=== PATIENT | female | born 1995 | race African-American/Black ===

== ENCOUNTER 2016-04-20 18:58 | Inpatient (IN) ==
[~2016-04-20 18:58] MED LIST: Famotidine 20 MG/2 ML VIAL IVP PRN; Metoclopramide 10 MG/2 ML VIAL IVP PRN; Naloxone 0.4 MG/ML INJ IVP PRN; Ondansetron 4 MG/2 ML VIAL IVP PRN; Oxytocin 20 units/ LR 1000 mL 20 UNIT/1,000 ML BAG IVC ONE; Ringers Solution, Lactated 1,000 ML IVC SCH
[2016-04-20 19:03] LABS: Basophils # 0.1 K/mcL (0.0-0.2); Basophils % 0.3 %; Eosinophils % 0.1 %; Hematocrit 37.1 % (35.3-44.9); Hemoglobin 12.9 g/dL (11.5-15.4); Immature Granulocytes % 0.4 % (0-4); Lymphocytes # 1.1 K/mcL (0.6-4.6); Lymphocytes % 5.9 %; Mean Corpuscular HGB Conc 34.8 g/dL (31.6-35.5); Mean Corpuscular Hemoglobin 30.7 pg (28.0-33.3); Mean Corpuscular Volume 88.3 fL (83.0-100.0); Monocytes # 0.7 K/mcL (0.0-1.3); Monocytes % 3.7 %; Neutrophils # 16.3 K/mcL (1.6-8.9); Platelet Count 284 K/mcL (140-400); Red Cell Distribution Width 13.5 % (11.5-14.5); Segmented Neutrophils % 89.6 %
[2016-04-20] MEDS ORDERED: *HR* FentaNYL (PF) 100 MCG/2 ML VIAL ONE (19:09)
--- NOTE | 2016-04-20 19:09 | OB/GYN History & Physical ---
Date of Encounter: 04/20/16 Time of Encounter: 19:13 Assessment and Plan (1) 40 weeks gestation of Current visit: Yes Status: Acute Admit for delivery (2) Hepatitis C Current visit: No Status: Chronic monitored by PCP Qualifiers: Viral hepatitis chronicity: chronic Hepatic coma status: without hepatic coma Qualified Code(s): B18.2 - Chronic viral hepatitis C History of Present Illness Chief complaint: Labor HPI: Ms. Mccabe is a 20 year old female @ 40w2d presents to labor and delivery with c/o contractions that started on . Patient denies any LOF or VB. Patient reports +FM. Blood type is B+, Rubella:Immune, Hep B: Negative, Hep C: Positive, GBS: Negative. Patient was completely dilated upon admission for labor evaluation. Patient admitted for delivery. Past Med Surg Social Fam HX - Past Medical History Source: patient Medical history: hepatitis Psychiatric history: anxiety, depression - Past Surgical History Surgical History: other (for scoliosis) - Social History Smoking Status: Never smoker Smokeless Tobacco Status: No Alcohol use: none Drug use: marijuana Current living situation: Home - Independent Activity Level: Independent ambulation Recent Out of Country Travel Within the Last 8 Weeks: No Exposure or Possible Exposure to Illness During Travel: No - Family History Mother Living Status: Hx Family Cardiac Disorders: No Hx Family Respiratory Disorders: No Hx Family Cancer: No Hx Family GI Disorders: No Hx Family Genitourinary Disorders: No Hx Family Endocrine Disorder: No Hx Family Musculoskeletal Disorders: No Hx Family Neuromuscular Disorders: No Hx Family Neurologic Disorders: No Hx Family HEENT Disorders: No Hx Family Autoimmune Disorders: No Hx Family Reproductive Disorders: No Hx Family Psychosocial Disorders: No Hx Family Medical Disorders: No Obstetrical History - Pregnancies : 3 Para: 0 Term: 0 : 0 Ab's: 2 Livin Medications and Allergies Pnv95/Ferrous Fumarate/FA [ Caplet] 1 each PO DAILY 04/20/16 [History] Allergies No Known Allergies Allergy (Verified 04/20/16 19:02) Review of System OB - Constitutional Constitutional ROS IM: no chills, no fever(s), no headache(s) - Cardiovascular Cardiovascular: no chest pain, no dyspnea, no edema, no palpitations, no syncope - Respiratory Respiratory: no cough, no dyspnea - Gastrointestinal Gastrointestinal: no diarrhea, no heartburn, no nausea, no vomiting - Genitourinary Genitourinary: no abnormal vaginal bleeding, no dysuria, no flank pain, no urinary frequency, no urinary urgency, no vaginal odor, no vaginal pruritis Exam - Constitutional Constitutional: well developed, well nourished, no acute distress, average body habitus - HEENT HEENT: Normocephaly, Mucus Membranes Moist - Neck Neck exam: full ROM, supple - Lungs Respiratory exam: CTAB - Cardiovascular Cardiovascular exam: RRR, +S1, +S2 - Breasts Breast: bilateral: normal - Abdomen Abdomen: Present: bowel sounds normal, gravid, non tender - Extremities Extremities exam: full ROM, normal capillary refill, normal inspection Deep Tendon Reflex Grade: 2+ Normal - Cervix Dilation: 10 Effacement: 100 Station: -1 - Uterus Uterus exam: Present: normal size, normal contour - Anus/Rectum Anus/Rectum: Present: normal perianal skin (FHR 115 bpm moderate variability + 15x15 accels early decels noted. Contractions noted but irregular.) Results Result Diagrams: 04/20/16 18:50 Abnormal lab results WBC 18.2 K/mcL (4.3-11.1) H 04/20/16 18:50 Neutrophils # 16.3 K/mcL (1.6-8.9) H 04/20/16 18:50 All other labs normal. - VTE Reasons for not Prescribing Prophylaxis: Treatment not Indicated - Low risk for VTE
[2016-04-20 19:22] LABS: Alanine Aminotransferase 14 Units/L (0-55); Aspartate Amino Transferase 20 Units/L (5-34); BUN/Creatinine Ratio 10 (6-26); Blood Urea Nitrogen 6 mg/dL (7-20); Lactate Dehydrogenase 395 Units/L (159-327); Uric Acid 4.7 mg/dL (2.6-6.0); eGFR For African Americans > 60 (> 60); eGFR For Non-African Americans > 60 (> 60)
--- NOTE | 2016-04-20 19:50 | Anesthesia Evaluation PreOp ---
Date of Encounter: 04/20/16 Time of Encounter: 19:26 - Past History Planned Operation: , vaginal del, Cardiac History: Denies any Significant Hx Pulmonary History: Denies Any Significant HX INFORMATION COORDINATOR History: Other (severe scolosis with Bilateral Luiz placement) Other Medical History: Hepatic (HEP C.) Anesthesia History: No Prior Anesthetic Complications, Past Anesthesia Alcohol Use: none Drug use: marijuana Medications and Allergies Pnv95/Ferrous Fumarate/FA [ Caplet] 1 each PO DAILY 04/20/16 [History] Allergies No Known Allergies Allergy (Verified 04/20/16 19:02) Anesthesia Results - Labs 04/20/16 18:50 04/20/16 18:50 Anesthesia Exam - HEENT Pupil (Motor): Pupils equal Mallampati: IV Teeth: Normal Oral Opening: Greater than 3 - INFORMATION COORDINATOR LOC: Oriented INFORMATION COORDINATOR Motor: Normal RUE, Normal LUE, Normal RLE, Normal LLE, Normal Face INFORMATION COORDINATOR Sensory: Normal: RUE, LUE, RLE, LLE, Face - Cardiac Rhythm: Regular - Pulmonary Breath Sounds: bilateral Clear Respiratory Effort: Symmetrical Anesthesia Assess/Plan ASA Score: 3 Modified [place] Scale for Level of Consciousness: Cooperative, oriented, and tranquil Anesthetic Plan: General, Regional Monitoring Plan: Standard Monitors
[2016-04-20] MEDS ORDERED: Lidocaine 1% 20 ML MDV ONE (19:52)
--- NOTE | 2016-04-20 20:00 | Anesthesia Procedures ---
Date of Encounter: 04/20/16 Time of Encounter: 19:37 Procedures: Anesthesia - Epidural/Spinal Patient ID/Chart reviewed: Yes Patient examined: Yes OB Eval: Gestational age: term OB Eval: Dilated at (cm): 10 OB Eval: Contractions: Non-stressed pattern Supplemental Oxygen: None/Room Air Site Prep: Aseptic Technique, Sterile prep and drape, 0.5% Chlorhexidine/Alcohol Patient position: right lateral decubitus Local Anesthetic: Lidocaine 1% Amount of Local Anesthetic used: 4 Loss of Resistance ([place]): No Blood: No CSF: No Paresthesia: No Spinal Needle Gauge: 24 Procedure: attemped three levels, 2 passes each level, patient unable to position properly , and unable to remain still during attempts after speaking again with patient in regards to tech difficulty and successfully positioning requiring remaining still patient wishes to abort procedure and cont. without regional. vss though out, FHR stable per RN's. OB provider coming in to break membranes.
[2016-04-20] MEDS ORDERED: *HR* HYDROcodone/Acet 5/325 mg TABLET PO ONE (20:48)
--- NOTE | 2016-04-20 20:55 | OB/GYN Procedure Note ---
Delivery - Delivery Date: 04/20/16 Provider: Maribel Calderon Intrapartum events: meconium Delivery induction: none Delivery monitor: external FHT, external uterine Anesthesia: local Estimated Blood Loss: 200 - Infant (s) Infant A Delivery Date: 04/20/16 Infant Delivery Time: 20:23 Presentation: vertex Position: HUNTER Route of delivery: Gender: Male Viability: Viable Pounds: 8 Ounces: 1 at 1 minute: 8 at 5 mins: 9 Shoulder Dystocia: not encountered Placenta: spontaneous Cord: 3 umbilical vessels - Repair Episiotomy: none Laceration Description: Perineal - 2nd Degree (repaired with 3-0 vicryl.), Labial (left labial repaired with 4-0 vicryl.) - Complications Delivery complications: none Delivery comments: Called to delivery, patient feels the urge to push. A forebag was ruptured meconium stained fluid noted and respiratory was called for delivery. Patient was placed in stirrups and began pushing with contraction. Delivery of viable male . No nuchal or shoulder dystocia encountered. was placed on maternal abdomen. Infant was vigorous and crying. Cord was clamped and cut by grandfather after pulsation ceased. 1% lidocaine was used for anesthesia. 2nd degree perineal laceration was repaired with 3-0 vicryl and left labial repaired with 4-0 vicryl. Patient tolerated well. Both Mother and baby are stable in LDR. - Disposition Mom disposition: stable in LDR disposition: stable in LDR
[2016-04-20] MEDS ORDERED: Acetaminophen 325 MG TABLET PO PRN (23:55)
[2016-04-20] MEDS ORDERED: Benzocaine/Menthol 56 GM AEROSOL SPRAY TP PRN (23:55)
[2016-04-20] MEDS ORDERED: Oxytocin 20 units/ LR 1000 mL 20 UNIT/1,000 ML BAG IV SCH (23:55)
[2016-04-20] MEDS ORDERED: Lanolin 7 G OINT...G. TP PRN (23:55)
[2016-04-20] MEDS ORDERED: *HR* HYDROcodone/Acet 5/325 mg TABLET PO PRN (23:55)
[2016-04-20] MEDS ORDERED: Oxytocin 20 units/ LR 1000 mL 20 UNIT/1,000 ML BAG IVC ONE (23:55)
[2016-04-21] MEDS: Prenatal Vit/FA 1 EACH TABLET PO SCH (08:14)
[2016-04-21] MEDS: Ibuprofen 600 MG TABLET PO PRN ×2 (08:14→20:01)
--- NOTE | 2016-04-21 08:38 | OB/GYN Progress Note ---
Date of Encounter: 04/21/16 Time of Encounter: 08:36 - Assessment and Plan (1) (normal spontaneous vaginal delivery) Current Visit: Yes Status: Acute Pt meeting PPD#1 milestones. Continue to monitor. Anticipate discharge home PPD# 2. (2) Hypertension affecting in third trimester Current Visit: No Status: Acute Normotensive . (3) Stress at home Current Visit: No Status: Acute (4) Hepatitis C Current Visit: No Status: Chronic Qualifiers: Viral hepatitis chronicity: chronic Hepatic coma status: without hepatic coma Qualified Code(s): B18.2 - Chronic viral hepatitis C Subjective - Subjective Patient reports: appetite normal, voiding normally, pain well controlled, ambulating normally [place]: doing well Objective - Latest Vital Signs Latest vital signs: Vital Signs Temp Pulse Resp BP Pulse Ox 04/21/16 08:25 20 04/21/16 07:44 98.4 F 108 20 120/77 99 04/21/16 01:30 98.7 F 102 16 136/83 98 04/21/16 00:34 98.2 F 102 16 139/87 98 04/20/16 23:30 98.2 F 88 16 137/79 98 Intake and Output 04/20/16 04/21/16 04/21/16 23:59 07:59 15:59 Output Total 200 / 200 500 / 500 Balance -200 / -200 -500 / -500 Output: Urine 500 / 500 Estimated Blood Loss 200 / 200 Other: # Voids 1 Weight 115.9 kg - Exam Lungs: bilateral: normal Chest: Normal S1, Normal S2 Extremities: Present: normal Abdomen: Present: soft. Absent: tenderness Uterus: Present: firm. Absent: tenderness Uterus Position: At Umbilicus - Labs Labs: Laboratory Results - last 24 hr 04/20/16 04/20/16 18:50 18:50 WBC 18.2 H RBC 4.20 Hgb 12.9 Hct 37.1 MCV 88.3 MCH 30.7 MCHC 34.8 RDW 13.5 Plt Count 284 MPV 12.0 Immature Gran % 0.4 Seg Neutrophils % 89.6 Lymphocytes % 5.9 Monocytes % 3.7 Eosinophils % 0.1 Basophils % 0.3 Neutrophils # 16.3 H Lymphocytes # 1.1 Monocytes # 0.7 Eosinophils # 0.0 Basophils # 0.1 BUN 6 L Creatinine 0.59 Est GFR ( Amer) > 60 Est GFR (Non-Af Amer) > 60 BUN/Creatinine Ratio 10 Uric Acid 4.7 AST 20 ALT 14 Lactate Dehydrogenase 395 H
[2016-04-22 08:04] VITALS: BP 138/91
--- NOTE | 2016-04-22 08:44 | Discharge Summary ---
Date of Encounter: 04/22/16 Time of Encounter: 08:39 - Discharge Diagnosis (1) (normal spontaneous vaginal delivery) Priority: Primary Status: Acute Comments: Pt meeting milestones. (2) Hypertension affecting in third trimester Priority: Secondary Status: Acute Comments: BP normal to mild range . (3) Stress at home Priority: Secondary Status: Acute (4) Hepatitis C Priority: Secondary Status: Chronic Qualifiers: Viral hepatitis chronicity: chronic Hepatic coma status: without hepatic coma Qualified Code(s): B18.2 - Chronic viral hepatitis C - Discharge Medications Prescriptions: Ibuprofen [Motrin] 600 mg PO Q6HR PRN #60 tablet PRN Reason: Cramping Docusate [Colace] 100 mg PO BID #60 capsule Home Medications: Pnv95/Ferrous Fumarate/FA [ Caplet] 1 each PO DAILY 04/20/16 [History] Docusate [Colace] 100 mg PO BID #60 capsule 04/22/16 [Rx] Ibuprofen [Motrin] 600 mg PO Q6HR PRN #60 tablet 04/22/16 [Rx] Lanolin [Lansinoh] 1 appl TP TID PRN #0 oint...g. 04/22/16 [Rx] Allergies/Adverse Reactions: Allergies No Known Allergies Allergy (Verified 04/20/16 19:02) Data Procedures and tests throughout hospitalization: Laboratory Tests 04/20/16 04/20/16 18:50 18:50 WBC 18.2 H RBC 4.20 Hgb 12.9 Hct 37.1 MCV 88.3 MCH 30.7 MCHC 34.8 RDW 13.5 Plt Count 284 MPV 12.0 Immature Gran % 0.4 Seg Neutrophils % 89.6 Lymphocytes % 5.9 Monocytes % 3.7 Eosinophils % 0.1 Basophils % 0.3 Neutrophils # 16.3 H Lymphocytes # 1.1 Monocytes # 0.7 Eosinophils # 0.0 Basophils # 0.1 BUN 6 L Creatinine 0.59 Est GFR ( Amer) > 60 Est GFR (Non-Af Amer) > 60 BUN/Creatinine Ratio 10 Uric Acid 4.7 AST 20 ALT 14 Lactate Dehydrogenase 395 H Date of admission: 04/20/16 18:58 Primary care physician: PCP NO Consults: 04/20/16 23:55 Consult to Pipeline Integrity Engineer [CONS] Routine Comment: Vaginal delivery, consult needed Consult to Rail Specialist [CONS] Routine Reason for SW Consult: 3 day hold Discharging clinician: Hyacinth Chavez Anticipated date of discharge: 04/22/16 - Patient Status Disposition: Home, Self-Care Condition: Good Functional capacity at discharge: independent ambulation Overall status at discharge: patient is progressing back to baseline - Discharge Instructions Follow Up With: NO,PCP [Primary Care Provider] - Maribel Calderon, CNM [Advanced Practice Nurse] - - Diet and Activity Activity: increase activity as tolerated Diet: advance to your usual diet Hospital Course Episiotomy: none Hospital course: - Delivery Date: 04/20/16 Provider: Maribel Calderon Intrapartum events: meconium Delivery induction: none Delivery monitor: external FHT, external uterine Anesthesia: local Estimated Blood Loss: 200 - (s) Infant A Infant Delivery Date: 04/20/16 Delivery Time: 20:23 Presentation: vertex Position: HUNTER Route of delivery: Gender: Male Viability: Viable Pounds: 8 Ounces: 1 at 1 minute: 8 at 5 mins: 9 Shoulder Dystocia: not encountered Placenta: spontaneous Cord: 3 umbilical vessels - Complications Delivery complications: none - Disposition Mom disposition: home PPD#2 [place] disposition: 3 day observation in nursery, Time Attestation: Total time spent providing and/or coordinating discharge services: Exam - Constitutional Vitals: Temp Pulse Resp BP Pulse Ox 98.5 F 98 16 138/91 99 04/22/16 08:03 04/22/16 08:03 04/22/16 08:03 04/22/16 08:03 04/22/16 08:03 General appearance IM: A&O X 3, pleasant, no acute distress - Respiratory Respiratory exam: Present: CTAB - Cardiovascular Cardiovascular exam IM: Present: RRR, +S1, +S2 - GI/Abdominal GI/Abdominal exam IM: soft - Rectal Rectal exam: deferred - Uterine Tone: Firm Uterus Position: 1 Finger Below Umbilicus - Extremities Exam Extremities exam IM: Present: normal capillary refill, normal inspection - Neurological Exam Neurological exam: normal gait, oriented X3 - Psychiatric Additional comments: reports tired but otherwise good mood
[2016-04-22] MEDS: Prenatal Vit/FA 1 EACH TABLET PO SCH (11:10)
== END 2016-04-22 10:00 | disposition home or self-care (01) | DRG 774 ==
LOC: 1NENULAB → 1NENUOBS 23:41
PROVIDERS: ADMIT Student in an Organized Health Care Education/Training Program; ATTEND Student in an Organized Health Care Education/Training Program